=== PATIENT | female | born 1985 | race Hispanic/Latino ===

== ENCOUNTER 2022-01-07 02:00 | Emergency (ER) | payer BC, OTHER ==
[~2022-01-07] VITALS: Ht 165.1 cm; Wt 145.1 kg
[2022-01-07] MEDS ORDERED: GABAPENTIN300 MG PO (02:36)
[2022-01-07] MEDS ORDERED: IBUPROFEN600 MG PO (02:37)
[2022-01-07] MEDS ORDERED: MEDROL4 MG PO (02:37)
[2022-01-07] MEDS ORDERED: DEXAMETHASONE SOD PHOS 10 MG/1 ML VIAL IM ONE (02:45)
[2022-01-07] MEDS ORDERED: KETOROLAC TROMETHAMINE 60 MG/2 ML VIAL IM ONE (02:45)
[2022-01-07] MEDS ORDERED: KETOROLAC TROMETHAMINE 60 MG/2 ML VIAL ONE (02:48)
[2022-01-07] MEDS ORDERED: DEXAMETHASONE SOD PHOS INJ 4 MG/ML SDV ONE (02:48)
== END 2022-01-07 03:27 | disposition home or self-care (01) ==
LOC: FSED 02:24
DX: M25.552 Pain in left hip (principal); M54.32 Sciatica, left side; F17.210 Nicotine dependence, cigarettes, uncomplicated
CPT/HCPCS: 99282; J1100; J1885